=== PATIENT | male | born 1985 | race Caucasian/White ===

== ENCOUNTER 2020-09-15 18:15 | Emergency (ER) | payer SELFPAY ==
[~2020-09-15] VITALS: Ht 165.1 cm; Wt 77.8 kg
[2020-09-15 18:30] VITALS: BP 132/60
== END 2020-09-15 19:27 | disposition home or self-care (01) ==
LOC: ER 18:17
DX: T16.2XXA Foreign body in left ear, initial encounter (principal); X58.XXXA Exposure to other specified factors, initial encounter; Y93.89 Activity, other specified; Y92.89 Other specified places as the place of occurrence of the external cause; Y99.8 Other external cause status
CPT/HCPCS: 99282